=== PATIENT | female | born 1975 | race Two or more races ===

== ENCOUNTER 2022-05-06 12:54 | Outpatient (REF) | payer MEDICAID, OTHER, SELFPAY ==
[2022-05-08 17:53] LABS: TS Negative Control Passed; TS Panel A 16; TS Panel B 22; TS Positive Control Passed; TSpotTB Positive (Negative)
== END 2022-05-06 12:55 | disposition home or self-care (01) ==
LOC: HO.LAB 12:54
PROVIDERS: Visit Provider Internal Medicine
DX: Z00.00 Encounter for general adult medical examination without abnormal findings (principal); Z11.1 Encounter for screening for respiratory tuberculosis
CPT/HCPCS: 36415; 86481

== ENCOUNTER 2022-05-12 11:27 | Outpatient (REF) | payer MEDICAID, OTHER, SELFPAY ==
--- NOTE | ~2022-05-12 | XR_ITS ---
EXAMINATION: XR CHEST CLINICAL INFORMATION: Positive TB test COMPARISON: None available. TECHNIQUE: 2 views of the chest were obtained. FINDINGS: No significant abnormality is noted involving the heart, lungs, mediastinum, bony thorax or soft tissues. There is a small hiatal hernia present. XR/XR chest 2V IMPRESSION: No acute disease. No evidence of active tuberculosis.
== END 2022-05-12 11:28 | disposition home or self-care (01) ==
LOC: HO.XRAY 11:27
PROVIDERS: Visit Provider Internal Medicine
DX: R76.11 Nonspecific reaction to tuberculin skin test without active tuberculosis (principal)
CPT/HCPCS: 71046